=== PATIENT | male | born 1995 | race Caucasian/White ===

== ENCOUNTER 2016-12-29 21:02 | Inpatient (IN) ==
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
[2016-12-29 21:33] LABS: Hematocrit 48.8 % (37.5-50.1); Hemoglobin 16.5 g/dL (12.9-16.9); Immature Granulocytes % 0.3 % (0-4); Lymphocytes % 23.2 %; Mean Corpuscular HGB Conc 33.8 g/dL (31.6-35.5); Mean Corpuscular Hemoglobin 30.3 pg (28.0-33.3); Mean Corpuscular Volume 89.5 fL (83.0-100.0); Mean Platelet Volume 10.4 fL (9.4-12.4); Monocytes % 7.1 %; Platelet Count 312 K/mcL (140-400); Red Blood Count 5.45 M/mcL (4.19-5.50); Red Cell Distribution Width 12.6 % (11.5-14.5)
[2016-12-29 21:34] LABS: Basophils # 0.1 K/mcL (0.0-0.2); Basophils % 0.4 %; Eosinophils # 0.1 K/mcL (0.0-0.6); Lymphocytes # 2.8 K/mcL (0.6-4.6); Monocytes # 0.8 K/mcL (0.0-1.3); Neutrophils # 8.1 K/mcL (1.6-8.9)
[2016-12-29 21:35] LABS: Bilirubin,Urine Small (Negative); Blood,Urine Negative (Negative); Clarity,Urine Cloudy (Clear); Color,Urine Yellow (Yellow); Glucose,Urine (UA) Normal (Normal); Ketones,Urine Trace mg/dL (Negative); Leukocyte Esterase,Urine Negative (Negative); Nitrite,Urine Negative (Negative); Protein,Urine Trace mg/dL (Neg-Trace); Urobilinogen,Urine Normal (Normal)
[2016-12-29 21:37] LABS: Bacteria,Urine None Seen per hpf (None-Few); Hyaline Casts,Urine None Seen per lpf (None-Few); RBC,Urine 0-3 per hpf (0-3); Squamous Epithelial Cell,Urine Many per lpf (None-Few); WBC,Urine 0-3 per hpf (0-3)
[2016-12-29 21:41] LABS: Amphetamine Screen,Urine Negative ng/mL (Cutoff=1000); Barbiturate Screen,Urine Negative ng/mL (Cutoff=200); Benzodiazepines Screen,Urine Negative ng/mL (Cutoff=200); Cannabinoid Screen,Urine Positive ng/mL (Cutoff = 50); Cocaine Screen,Urine Negative ng/mL (Cutoff= 300); Opiate Screen,Urine Negative ng/mL (Cutoff=300); Phencyclidine Screen,Urine Negative ng/mL (Cutoff=25)
[2016-12-29 21:49] LABS: BUN/Creatinine Ratio 13 (6-26); Blood Urea Nitrogen 12 mg/dL (8-26); Calcium 10.1 mg/dL (8.6-10.8); Carbon Dioxide 24 mEq/L (19-29); Chloride 103 mEq/L (98-109); Glucose 96 mg/dL (70-99); Osmolality,Calculated 290 (280-300); Potassium 3.8 mEq/L (3.5-4.5); Sodium 140 mEq/L (136-145); eGFR For African Americans > 60 (> 60); eGFR For Non-African Americans > 60 (> 60)
[2016-12-29 21:50] LABS: Albumin 4.9 g/dL (3.5-5.0); Albumin/Globulin Ratio 1.5 (1.1-2.2); Bilirubin,Direct 0.3 mg/dL (0.0-0.5); Bilirubin,Indirect 0.4 mg/dL (0.0-1.2); Bilirubin,Total 0.7 mg/dL (0.2-1.2); Globulin 3.3 g/dL (2.4-3.5); Total Protein 8.2 g/dL (6.0-8.3)
[2016-12-29 21:54] LABS: Acetaminophen < 1.0 mcg/mL (10-30); Ethanol < 10 mg/dL (0-10); Salicylate < 5.0 mg/dL (15-30)
[2016-12-29 22:10] LABS: Thyroid Stimulating Hormone 1.016 mcIU/mL (0.350-4.840)
--- NOTE | 2016-12-29 23:05 | Emergency Department Note ---
START Narrative - START START: This patient was pending admission at the time of shift change. My only involvement in this case was to order the "decision to place" and to place a bed request. I did not see this patient. I was asked to place the bed request by the admitting 1A nurse.
[2016-12-29] MEDS ORDERED: Mag Hydrox/Al Hydrox/Simeth 30 ML UDC PO PRN (23:24)
[2016-12-29] MEDS ORDERED: *HR* LORazepam 2 MG/ML VIAL IM PRN (23:24)
[2016-12-29] MEDS ORDERED: hydrOXYzine pamoate 25 MG CAPSULE PO PRN (23:24)
[2016-12-29] MEDS ORDERED: Acetaminophen 325 MG TABLET PO PRN (23:24)
[2016-12-29] MEDS ORDERED: *HR* LORazepam 1 MG TABLET PO PRN (23:24)
[2016-12-29] MEDS ORDERED: MOM Conc 10 ML UD.LIQ PO PRN (23:24)
[2016-12-29] MEDS ORDERED: Haloperidol Lactate 5 MG/ML VIAL IM PRN (23:24)
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
[2016-12-30] MEDS: OLANZapine 10 MG TAB.RAPDIS PO SCH (20:55)
--- NOTE | 2016-12-31 10:41 | Psychiatry Progress Note ---
Date of Encounter: 12/31/16 Time of Encounter: 10:10 Subjective Interval history: Patient seen and interviewed. Reporting of doing a lot better. Behavior is more controlled and compliant. Slept fairly well after taking Zyprexa. Able to hold a linear and logical conversation without getting distracted easily. Still pressured and slightly intrusive. She still religiously preoccupied and quoting Bible and has been reading it on the unit. Able to see the irrational thought process that he was demonstrating prior to admission and gaining some insight into his bizarre and hyperreligious thought process. He is easily redirectable. Attending groups and interacting with peers appropriately. Overall patient is improving. Review of Systems Psychiatric: Reports: anxiety, mood swings Objective: Exam Patient orientation: Yes Person, Yes Time, Yes Place Level of alertness: Alert Patient appearance: Appropriate Behavior: anxious, talkative Psychomotor activity: Increased Eye contact: Maintains Eye Contact Mood description: Elevated Affect description: labile Speech pattern: Pressured Speech volume: Normal Thought process: Flight of Ideas Thought content: Yes Spiritism delusion Perceptual disturbances: No Auditory hallucinations, No Visual hallucinations Judgment: Fair Insight: Partial Results - Vital Signs Vital Signs: Temp Pulse Resp BP Pulse Ox 98.2 F 114 16 134/98 99 12/31/16 09:00 12/31/16 09:00 12/31/16 09:00 12/31/16 09:00 12/29/16 21:04 Assessment and Plan (1) Substance-induced psychotic disorder with delusions Current visit: Yes Status: Acute Plan: Continue hospitalization, Close observation, Suicide Precautions per unit protocol, Encourage participation in unit milieu, Group Therapy, Monitor sleep, Monitor appetite Additional Plan: Continue Zyprexa Risks, benefits, side effects, alternatives discussed w/pt: Yes Patient agreeable to treatment: Yes (2) Polysubstance abuse Current visit: Yes Status: Acute Plan: Continue hospitalization, Close observation, Suicide Precautions per unit protocol, Encourage participation in unit milieu, Group Therapy, Monitor sleep, Monitor appetite Additional Plan: Encouraged to work on a relapse prevention plan. Discussed different strategies to maintain sobriety. Risks, benefits, side effects, alternatives discussed w/pt: Yes Patient agreeable to treatment: Yes Consult Discharge Plan - Plan Referrals: NO,PCP [Primary Care Provider] -
--- NOTE | 2016-12-31 20:22 | Electrocardiograph Report ---
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
[2016-12-31] MEDS: OLANZapine 10 MG TAB.RAPDIS PO SCH (20:34)
--- NOTE | 2017-01-01 14:01 | Psychiatry Progress Note ---
Date of Encounter: 01/01/17 Time of Encounter: 13:55 Subjective Interval history: The H&P reviewed , patient seen for follow-up. Nursing staff report that patient is less manic, less delusional. He is compliant with his medication and was able to sleep. Patient presents as a pleasant young man, speech is pressured, some delusional content and preoccupation with drugs like marijuana, LSD, cocaine and others. Patient is gaining some insight. Denies any side effects from medication. Denies suicidal ideation. He displayed amish preoccupation. Review of Systems Psychiatric: Reports: anxiety, mood swings Objective: Exam Patient orientation: Yes Person, Yes Time, Yes Place Level of alertness: Alert Patient appearance: Appropriate, Well Groomed, Bizarre Behavior: anxious, talkative, dramatic Psychomotor activity: Increased Eye contact: Maintains Eye Contact Mood description: Elevated, Euphoric Affect description: labile Speech pattern: Pressured Speech volume: Normal Thought process: Flight of Ideas, Racing Thought content: Yes Buddhist delusion Perceptual disturbances: No Auditory hallucinations, No Visual hallucinations Judgment: Fair Insight: Partial Results - Vital Signs Vital Signs: Temp Pulse Resp BP Pulse Ox 98.1 F 91 16 136/95 99 01/01/17 08:47 01/01/17 08:47 01/01/17 08:47 01/01/17 08:47 12/29/16 21:04 Assessment and Plan (1) Substance-induced psychotic disorder with delusions Current visit: Yes Status: Acute Plan: Continue hospitalization, Close observation, Suicide Precautions per unit protocol, Encourage participation in unit milieu, Group Therapy, Monitor sleep, Monitor appetite Risks, benefits, side effects, alternatives discussed w/pt: Yes Patient agreeable to treatment: Yes Consult Discharge Plan - Plan Referrals: NO,PCP [Primary Care Provider] -
[2017-01-01] MEDS: OLANZapine 10 MG TAB.RAPDIS PO SCH (21:00)
--- NOTE | 2017-01-02 13:43 | Psychiatry Progress Note ---
Date of Encounter: 01/02/17 Time of Encounter: 13:39 Subjective Interval history: Patient is seen for follow-up. Nursing staff report he is no delusional or paranoid he is pleasant and appropriate in groups. He is compliant with his medication and showing improvement. Social work is in contact with his mother to work on discharge planning. Patient denies any suicidal ideation and an motivated to stay away from drugs. Review of Systems Psychiatric: Reports: anxiety, mood swings Objective: Exam Patient orientation: Yes Person, Yes Time, Yes Place Level of alertness: Alert Patient appearance: Appropriate, Well Groomed, Bizarre Behavior: cooperative, anxious, talkative, dramatic Psychomotor activity: Normal Eye contact: Maintains Eye Contact Mood description: Anxious, Elevated, Euphoric Affect description: congruent with mood, labile Speech pattern: Normal rate, Normal rhythm, Normal tone, Appropriate, Clear, Pressured Speech volume: Normal Thought process: Flight of Ideas, Racing Thought content: Yes Preoccupation, Yes Obsessive thoughts Perceptual disturbances: No Auditory hallucinations, No Visual hallucinations Judgment: Fair Insight: Partial Results - Vital Signs Vital Signs: Temp Pulse Resp BP Pulse Ox 98 F 98 16 139/90 99 01/02/17 08:49 01/02/17 08:49 01/02/17 08:49 01/02/17 08:49 12/29/16 21:04 Assessment and Plan (1) Substance-induced psychotic disorder with delusions Current visit: Yes Status: Acute Plan: Continue hospitalization, Close observation, Suicide Precautions per unit protocol, Encourage participation in unit milieu, Group Therapy, Monitor sleep, Monitor appetite Risks, benefits, side effects, alternatives discussed w/pt: Yes Patient agreeable to treatment: Yes (2) Depression Current visit: Yes Status: Acute Plan: Continue hospitalization, Close observation, Suicide Precautions per unit protocol, Encourage participation in unit milieu, Group Therapy, Monitor sleep, Monitor appetite Risks, benefits, side effects, alternatives discussed w/pt: Yes Patient agreeable to treatment: Yes Qualifiers: Depression Type: unspecified Qualified Code(s): F32.9 - Major depressive disorder, single episode, unspecified Consult Discharge Plan - Plan Referrals: NO,PCP [Primary Care Provider] -
[2017-01-02] MEDS: OLANZapine 10 MG TAB.RAPDIS PO SCH (20:40)
[2017-01-03 08:57] VITALS: BP 142/96
--- NOTE | 2017-01-03 12:52 | Discharge Summary ---
Date of Encounter: 01/03/17 Time of Encounter: 12:46 Diagnosis - Discharge Diagnosis (1) Substance-induced psychotic disorder with delusions Priority: Primary Status: Acute (2) Depression Priority: Secondary Status: Chronic Qualifiers: Depression Type: unspecified Qualified Code(s): F32.9 - Major depressive disorder, single episode, unspecified (3) Polysubstance abuse Priority: Secondary Status: Acute Medications - Discharge Medications Prescriptions: HydrOXYzine Pamoate 25 mg PO BID PRN #30 capsule PRN Reason: Anxiety OLANZapine [Zyprexa Zydis] 10 mg PO HS #30 tab.rapdis HydrOXYzine Pamoate 25 mg PO BID PRN #30 capsule 01/03/17 [Rx] OLANZapine [Zyprexa Zydis] 10 mg PO HS #30 tab.rapdis 01/03/17 [Rx] Allergies No Known Allergies Allergy (Verified 12/29/16 21:08) Provider Date of admission: 12/29/16 23:04 Primary care physician: PCP NO Consults: 12/29/16 23:52 Consult to Pastoral Services [CONS] Routine Comment: Per patient request Discharging clinician: Jhoan Murphy Assessment and Plan - Patient/Caregiver Discharge Instructions Activity: resume usual activities as tolerated Diet: regular diet - Follow up Plan Follow up with: [facility] [Other] (You will see Simone Paredes, counselor, for an intake on January 19, 2017 at 9:30 AM. Please bring your insurance card. Please also bring a signed statement from your friends indicating you live at their address and they are providing room and board for you. This statement will allow the agency to provide assistance with any costs of treatment not covered by your insurance. You are also scheduled to see psychiatric prescriber , Henry Conteh, on February 11, 2017 at 11:00 AM. You must keep your intake appointment in order to be able to see Henry. ) Functional capacity at discharge: independent ambulation Overall status at discharge: Stable Disposition: Home, Self-Care Hospital Course Hospital course: Mr. Chaidez is a 21 year old male admitted for substance-induced psychosis and suicidal ideation and substance abuse. For details ADMISSION please see H&P On the units patient was treated with Zyprexa and when necessary medication. His sleep improved, he was less delusional and denied suicidal ideation. Prior to discharge he was medically stable, presents no delusions or paranoia, he was educated about his medication noncompliance and instructed not to use any drugs. He is looking forward to have a job in the summer and back to school. Discharge plans are completed. - Time Spent with Patient Total time spent providing and/or coordinating discharge services: Quality - Multiple Antipsychotics Patient discharged on 2 or more antipsychotic medications: No Mental Status Exam - Mental Status Exam Patient orientation: Yes Person, Yes Time, Yes Place Level of alertness: Alert Patient appearance: Appropriate, Well Groomed, Bizarre Behavior: cooperative, anxious, talkative, dramatic Psychomotor activity: Normal Eye contact: Maintains Eye Contact Mood description: Anxious, Elevated, Euphoric Affect description: congruent with mood, labile Speech pattern: Normal rate, Normal rhythm, Normal tone, Appropriate, Clear, Pressured Speech Volume: Normal Thought process: Flight of Ideas, Racing Thought Content: Yes Preoccupation, Yes Obsessive thoughts Perceptual Disturbances: No Auditory hallucinations, No Visual hallucinations Judgment: Fair Insight: Partial
== END 2017-01-03 16:10 | disposition home or self-care (01) | DRG 897 ==
LOC: EMEROO 21:02 → SUATTDRO 23:04 → 1ANU 23:04
PROVIDERS: ADMIT Psychiatry & Neurology Psychiatry; ATTEND Psychiatry & Neurology Psychiatry

== ENCOUNTER 2018-06-20 14:07 | Inpatient (IN) ==
[2018-06-20] MEDS ORDERED: Haloperidol Lactate 5 MG/ML VIAL ONE ×2 (14:44→15:21)
[2018-06-20] MEDS ORDERED: *HR* LORazepam 2 MG/ML VIAL ONE (14:45)
[2018-06-20 14:58] LABS: Bilirubin,Urine Small (Negative); Blood,Urine Negative (Negative); Clarity,Urine Clear (Clear); Color,Urine Yellow (Yellow); Glucose,Urine (UA) Normal (Normal); Ketones,Urine Trace mg/dL (Negative); Leukocyte Esterase,Urine Negative (Negative); Nitrite,Urine Negative (Negative); Protein,Urine 30 mg/dL (Neg-Trace); Specific Gravity,Urine 1.025 (1.010-1.025); Urobilinogen,Urine Normal (Normal)
[2018-06-20 15:09] LABS: Mucus,Urine Many (Few); Squamous Epithelial Cell,Urine Few per lpf (None-Few)
[2018-06-20 15:10] LABS: Amorphous Sediment,Urine Moderate (Few); RBC,Urine 0-3 per hpf (0-3)
[2018-06-20 15:11] LABS: Bacteria,Urine Few per hpf (None-Few); WBC,Urine 0-3 per hpf (0-3)
[2018-06-20 15:28] LABS: Basophils % 0.3 %; Eosinophils # 0.1 K/mcL (0.0-0.6); Hematocrit 52.3 % (37.5-50.1); Hemoglobin 17.7 g/dL (12.9-16.9); Immature Granulocytes % 0.3 % (0-4); Lymphocytes # 3.7 K/mcL (0.6-4.6); Lymphocytes % 36.7 %; Mean Corpuscular HGB Conc 33.8 g/dL (31.6-35.5); Mean Corpuscular Hemoglobin 31.6 pg (28.0-33.3); Mean Corpuscular Volume 93.4 fL (83.0-100.0); Mean Platelet Volume 10.3 fL (9.4-12.4); Monocytes # 0.7 K/mcL (0.0-1.3); Monocytes % 6.5 %; Neutrophils # 5.6 K/mcL (1.6-8.9); Platelet Count 284 K/mcL (140-400); Red Cell Distribution Width 12.6 % (11.5-14.5); Segmented Neutrophils % 55.2 %
[2018-06-20] MEDS ORDERED: *HR* LORazepam 2 MG/ML VIAL IM ONE (15:33)
[2018-06-20 15:34] LABS: Amphetamine Screen,Urine Negative ng/mL (Cutoff=1000); Barbiturate Screen,Urine Negative ng/mL (Cutoff=200); Benzodiazepines Screen,Urine Negative ng/mL (Cutoff=200); Cannabinoid Screen,Urine Positive ng/mL (Cutoff = 50); Cocaine Screen,Urine Negative ng/mL (Cutoff= 300); Opiate Screen,Urine Negative ng/mL (Cutoff=300); Phencyclidine Screen,Urine Negative ng/mL (Cutoff=25)
[2018-06-20 15:46] LABS: Acetaminophen < 10 mcg/mL (10-20); BUN/Creatinine Ratio 10 (6-26); Blood Urea Nitrogen 11 mg/dL (6-20); Calcium 10.3 mg/dL (8.6-10.3); Carbon Dioxide 21 mEq/L (23-29); Chloride 104 mEq/L (98-107); Ethanol < 10 mg/dL (Less than 10); Glucose 122 mg/dL (70-105); Osmolality,Calculated 289 (280-300); Potassium 3.8 mEq/L (3.5-5.1); Salicylate < 2.5 mg/dL (15.0-30.0); Sodium 139 mEq/L (136-145); eGFR For Non-African Americans > 60 (> 60)
[2018-06-20] MEDS: Haloperidol Lactate 5 MG/ML VIAL IM ONE ×2 (16:36→16:37)
--- NOTE | 2018-06-20 16:46 | Emergency Department Note ---
Disposition Clinical Impression: Auditory hallucinations, Suicidal ideation, Homicidal ideation, Marijuana abuse Disposition: Admitted As Inpatient Condition: Good Referrals: NONE,PCP [Primary Care Provider] - Psych HPI - General Chief Complaint: ED Psychiatric Symptoms Stated Complaint: SI Time Seen by Provider: 06/20/18 14:27 Source: patient, family Mode of arrival: ambulatory Limitations: no limitations Nursing Notes Reviewed: Yes Vital Signs Reviewed: Yes - History of Present Illness HPI Narrative: Patient presents today for evaluation of suicidal and homicidal ideation. He is brought in by father also the request of mother for worsening symptoms. He describes hearing voices that tell him bad things. He states that they make him want to kill voices that he hears. Sometimes they are voices that he knows and other times they are not. He also states that he wants to kill himself in order to help stop the voices. The father states that all this started approximately a year ago when he did an acid trip that went bad. Has suicidal attempts but was unsuccessful. The patient has since had issues with auditory hallucinations. Patient has not had fevers or chills or chest pain or shortness of breath. Patient has not had any recent weight loss or weight gain. Patient will undergo blood work as well as a CT scan of his head for further evaluation. - Related Data Previous Rx's Medication Instructions Recorded OLANZapine [Zyprexa Zydis] 10 mg PO HS #30 tab.rapdis 01/03/17 hydrOXYzine pamoate [HydrOXYzine 25 mg PO BID PRN #30 capsule 01/03/17 Pamoate] Allergies Allergy/AdvReac Type Severity Reaction Status Date / Time No Known Allergies Allergy Verified 12/29/16 21:08 Review of Systems: CONSTITUTIONAL: No weight loss, fever, chills, weakness or fatigue. HEENT: Eyes: No visual changes. Ears, Nose, Throat: No hearing loss, difficulty talking or unable to swallow. SKIN: No rash or itching. CARDIOVASCULAR: No chest pain, chest pressure or chest discomfort. No palpitations or edema. RESPIRATORY: No shortness of breath, cough or sputum. GASTROINTESTINAL: No anorexia, nausea, vomiting or diarrhea. No abdominal pain or blood. GENITOURINARY: No burning on urination or hematuria. NEUROLOGICAL: Auditory hallucinations No headache, dizziness, syncope, paralysis , ataxia, numbness or tingling in the extremities. No change in bowel or bladder control. MUSCULOSKELETAL: No muscle pain, back pain, joint pain or stiffness. Psych: Suicidal and homicidal ideations. Past Medical History - Past Medical History Medical history: Reports: no medical history Surgical history: Reports: no surgical history Psychiatric history: Reports: depression, prior suicide attempt, previous psychiatric hospitalization - Social History Smoking Status: Current every day smoker Smokeless Tobacco Status: No Alcohol use: Reports: occasionally Drug use: Reports: cocaine, marijuana, prescription drug abuse, other Physical Exam General: Well appearing, nontoxic, no acute distress Head: Normocephalic Atraumatic Eyes: PERRL, EOMI ENT: Airway patent, no stridor Neck: supple, no meningismus Chest: Lungs clear to auscultation bilateral Cardiac: Regular rate and rhythm, no murmurs, rubs or gallops Abdomen: soft, nontender, nondistended; no guarding, rebound, or tenderness to percussion Musculoskeletal: Calves symmetric, nontender, no palpable cord Skin: No rash, normal skin tone Neuro: Alert and Oriented to person, place, and time; No focal deficit, CN 2-12 symmetric and intact - General Limitations: no limitations General appearance: alert, in no apparent distress Course - Reevaluation(s) Reevaluation #1: When the patient was told about blood work he adamantly refused. States that he is not comfortable with it. Significant amount of time was spent explaining the need for this. Patient has expressed suicidal and homicidal ideation and thoughts. He poses a risk to himself as well as others. This was explained to the patient still was not able to understand that we did need to clear him medically in order to get psychiatric treatment that he needs. Crumpler slip was placed. Patient was given chemical sedation with Haldol as well as Ativan and Benadryl. Patient was placed in leather restraints. Reevaluation #2: Patient did require 2 doses of Haldol however at this time he is very cooperative. Blood has been obtained and does not show any significant abnormalities. Patient has been cleared for further evaluation by psychiatric team. Positive for marijuana - Consultations Consultation #1: Discussed with [facility]. They will come and evaluate the patient. Vital Signs Temperature 97.3 F L 06/20/18 14:09 Pulse Rate 64 06/20/18 14:09 Respiratory Rate 15 06/20/18 14:09 Blood Pressure 134/82 06/20/18 14:09 O2 Sat by Pulse Oximetry 97 06/20/18 14:09 Temperature 97.3 F L 06/20/18 14:09 Pulse Rate 64 06/20/18 14:09 Respiratory Rate 15 06/20/18 14:09 Blood Pressure 134/82 06/20/18 14:09 O2 Sat by Pulse Oximetry 97 06/20/18 14:09 Oxygen Delivery Oxygen Delivery Room Air Psych - Lab Data Result diagrams: 06/20/18 15:04 06/20/18 15:04 Lab Results 06/20/18 06/20/18 06/20/18 Range/Units 14:32 14:32 15:04 WBC 10.1 (4.3-11.1) K/mcL RBC 5.60 H (4.19-5.50) M/mcL Hgb 17.7 H (12.9-16.9) g/dL Hct 52.3 H (37.5-50.1) % MCV 93.4 (83.0-100.0) fL MCH 31.6 (28.0-33.3) pg MCHC 33.8 (31.6-35.5) g/dL RDW 12.6 (11.5-14.5) % Plt Count 284 (140-400) K/mcL MPV 10.3 (9.4-12.4) fL Immature Gran % 0.3 (0-4) % Seg Neutrophils % 55.2 % Lymphocytes % 36.7 % Monocytes % 6.5 % Eosinophils % 1.0 % Basophils % 0.3 % Neutrophils # 5.6 (1.6-8.9) K/mcL Lymphocytes # 3.7 (0.6-4.6) K/mcL Monocytes # 0.7 (0.0-1.3) K/mcL Eosinophils # 0.1 (0.0-0.6) K/mcL Basophils # 0.0 (0.0-0.2) K/mcL Sodium (136-145) mEq/L Potassium (3.5-5.1) mEq/L Chloride (98-107) mEq/L Carbon Dioxide (23-29) mEq/L BUN (6-20) mg/dL Creatinine (0.70-1.30) mg/dL Est GFR ( Amer) (> 60) Est GFR (Non-Af Amer) (> 60) BUN/Creatinine Ratio (6-26) Glucose (70-105) mg/dL Calculated Osmolality (280-300) Calcium (8.6-10.3) mg/dL Urine Color Yellow (Yellow) Urine Clarity Clear (Clear) Urine pH 7.0 (5.0-8.0) pH Units Ur Specific [place] 1.025 (1.010-1.025) Urine Protein 30 H (Neg-Trace) mg/dL Urine Glucose (UA) Normal (Normal) mg/dL Urine Ketones Trace H (Negative) mg/dL Urine Blood Negative (Negative) Urine Nitrite Negative (Negative) Urine Bilirubin Small H (Negative) Urine Urobilinogen Normal (Normal) mg/dL Ur Leukocyte Esterase Negative (Negative) Urine Microscopic RBC 0-3 (0-3) per hpf Urine Microscopic WBC 0-3 (0-3) per hpf Ur Squamous Epith Cells Few (None-Few) per lpf Amorphous Sediment Moderate H (Few) Urine Bacteria Few (None-Few) per hpf Urine Mucus Many H (Few) Salicylates (15.0-30.0) mg/dL Urine Opiates Screen Negative (Vdlmqk=371) ng/mL Acetaminophen (10-20) mcg/mL Ur Barbiturates Screen Negative (Ougili=356) ng/mL Ur Phencyclidine Scrn Negative (Cutoff=25) ng/mL Ur Amphetamines Screen Negative (Gwfbih=6531) ng/mL U Benzodiazepines Scrn Negative (Fprwuz=083) ng/mL Urine Cocaine Screen Negative (Cutoff= 300) ng/mL U Marijuana (THC) Screen Positive H (Cutoff = 50) ng/mL Ur Drug Screen Interp See Below Ethyl Alcohol (Less than 10) mg/dL 06/20/18 Range/Units 15:04 WBC (4.3-11.1) K/mcL RBC (4.19-5.50) M/mcL Hgb (12.9-16.9) g/dL Hct (37.5-50.1) % MCV (83.0-100.0) fL MCH (28.0-33.3) pg MCHC (31.6-35.5) g/dL RDW (11.5-14.5) % Plt Count (140-400) K/mcL MPV (9.4-12.4) fL Immature Gran % (0-4) % Seg Neutrophils % % Lymphocytes % % Monocytes % % Eosinophils % % Basophils % % Neutrophils # (1.6-8.9) K/mcL Lymphocytes # (0.6-4.6) K/mcL Monocytes # (0.0-1.3) K/mcL Eosinophils # (0.0-0.6) K/mcL Basophils # (0.0-0.2) K/mcL Sodium 139 (136-145) mEq/L Potassium 3.8 (3.5-5.1) mEq/L Chloride 104 (98-107) mEq/L Carbon Dioxide 21 L (23-29) mEq/L BUN 11 (6-20) mg/dL Creatinine 1.08 (0.70-1.30) mg/dL Est GFR ( Amer) > 60 (> 60) Est GFR (Non-Af Amer) > 60 (> 60) BUN/Creatinine Ratio 10 (6-26) Glucose 122 H (70-105) mg/dL Calculated Osmolality 289 (280-300) Calcium 10.3 (8.6-10.3) mg/dL Urine Color (Yellow) Urine Clarity (Clear) Urine pH (5.0-8.0) pH Units Ur Specific [place] (1.010-1.025) Urine Protein (Neg-Trace) mg/dL Urine Glucose (UA) (Normal) mg/dL Urine Ketones (Negative) mg/dL Urine Blood (Negative) Urine Nitrite (Negative) Urine Bilirubin (Negative) Urine Urobilinogen (Normal) mg/dL Ur Leukocyte Esterase (Negative) Urine Microscopic RBC (0-3) per hpf Urine Microscopic WBC (0-3) per hpf Ur Squamous Epith Cells (None-Few) per lpf Amorphous Sediment (Few) Urine Bacteria (None-Few) per hpf Urine Mucus (Few) Salicylates < 2.5 L (15.0-30.0) mg/dL Urine Opiates Screen (Wyvijw=084) ng/mL Acetaminophen < 10 L (10-20) mcg/mL Ur Barbiturates Screen (Xldrzi=167) ng/mL Ur Phencyclidine Scrn (Cutoff=25) ng/mL Ur Amphetamines Screen (Nqaedp=8819) ng/mL U Benzodiazepines Scrn (Gmtkvr=607) ng/mL Urine Cocaine Screen (Cutoff= 300) ng/mL U Marijuana (THC) Screen (Cutoff = 50) ng/mL Ur Drug Screen Interp Ethyl Alcohol < 10 (Less than 10) mg/dL Psychiatric Medical Clearance - Medical Clearance Checklist Medical History: No Social History Section defined Current Vitals: Last Vital Signs Temp 97.3 F L 06/20/18 14:09 Pulse 64 06/20/18 14:09 Resp 15 06/20/18 14:09 BP 134/82 06/20/18 14:09 Pulse Ox 97 06/20/18 14:09 Psychiatric Lab Panel: Drug Levels and Toxicity 06/20/18 06/20/18 14:32 15:04 Urine Opiates Screen Negative Acetaminophen < 10 L Ur Barbiturates Screen Negative Ur Phencyclidine Scrn Negative Ur Amphetamines Screen Negative U Benzodiazepines Scrn Negative Urine Cocaine Screen Negative U Marijuana (THC) Screen Positive H Ethyl Alcohol < 10 Abnormal Labs: Abnormal lab results RBC 5.60 M/mcL (4.19-5.50) H 06/20/18 15:04 Hgb 17.7 g/dL (12.9-16.9) H 06/20/18 15:04 Hct 52.3 % (37.5-50.1) H 06/20/18 15:04 Carbon Dioxide 21 mEq/L (23-29) L 06/20/18 15:04 Glucose 122 mg/dL (70-105) H 06/20/18 15:04 Urine Protein 30 mg/dL (Neg-Trace) H 06/20/18 14:32 Urine Ketones Trace mg/dL (Negative) H 06/20/18 14:32 Urine Bilirubin Small (Negative) H 06/20/18 14:32 Amorphous Sediment Moderate (Few) H 06/20/18 14:32 Urine Mucus Many (Few) H 06/20/18 14:32 Salicylates < 2.5 mg/dL (15.0-30.0) L 06/20/18 15:04 Acetaminophen < 10 mcg/mL (10-20) L 06/20/18 15:04 U Marijuana (THC) Screen Positive ng/mL (Cutoff = 50) H 06/20/18 14:32 Statement of Medical Clearance: I have evaluated the patient, reviewed diagnostic information, and certify that the patient's medical condition is sufficiently stable that transfer to the psychiatric unit does not pose a significant risk of deterioration.
[2018-06-20] MEDS ORDERED: hydrOXYzine pamoate 25 MG CAPSULE PO PRN (19:06)
[2018-06-20] MEDS ORDERED: Mag Hydrox/Al Hydrox/Simeth 30 ML UDC PO PRN (19:06)
[2018-06-20] MEDS ORDERED: MOM Conc 10 ML UD.LIQ PO PRN (19:06)
[2018-06-20] MEDS ORDERED: *HR* LORazepam 2 MG/ML VIAL IM PRN (19:06)
[2018-06-20] MEDS ORDERED: Haloperidol Lactate 5 MG/ML VIAL IM PRN (19:06)
[2018-06-20] MEDS ORDERED: *HR* LORazepam 1 MG TABLET PO PRN (19:06)
[2018-06-20] MEDS ORDERED: Ibuprofen 400 MG TABLET PO PRN (19:06)
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
[2018-06-22] MEDS ORDERED: ARIPiprazole 5 MG TABLET PO SCH (21:00)
[2018-06-22] MEDS: traZODone 50 MG TABLET PO PRN (21:21)
--- NOTE | 2018-06-23 11:11 | Psychiatry Progress Note ---
Date of Encounter: 06/23/18 Time of Encounter: 11:08 Subjective Interval history: Still psychotic with little to no insight. However, he looks better than yesterday. Less paranoid glancing around the room. Took Abilify last night and reports it helped. Will increase dose today. Unclear if presentation is strictly substance induced but suspect there is an underlying thought disorder. It is possible he will end up having a Schizophrenia diagnosis with time. Review of Systems Constitutional: Denies: fever, chills, weakness, weight change Eyes: Denies: eye pain, vision change Ears, Nose, Throat: Denies: ear pain, throat pain, dental pain, hearing loss, congestion Cardiovascular: Denies: chest pain, palpitations, dyspnea on exertion Respiratory: Denies: cough, dyspnea, wheezes Gastrointestinal: Denies: abdominal pain, nausea, vomiting, diarrhea, constipation Musculoskeletal: Denies: joint swelling, joint pain Neurological: Denies: headache, weakness, numbness, memory loss Psychiatric: Reports: depression, anxiety, abnormal sleep pattern, suicidal ideation, auditory hallucinations, anhedonia, difficulty concentrating, hopelessness, irritability, mood swings Results - Vital Signs Vital Signs: Temp Pulse Resp BP Pulse Ox 98.7 F 78 18 138/89 97 06/23/18 09:00 06/23/18 09:00 06/23/18 09:00 06/23/18 09:00 06/20/18 17:29 Assessment and Plan (1) Substance-induced psychotic disorder with delusions Current visit: No Status: Acute Plan: Continue hospitalization, Close observation, Suicide Precautions per unit protocol, Encourage participation in unit milieu, Group Therapy, Monitor sleep, Monitor appetite Risks, benefits, side effects, alternatives discussed w/pt: Yes Patient agreeable to treatment: Yes (2) Bipolar depression Current visit: Yes Status: Acute Plan: Continue hospitalization, Close observation, Suicide Precautions per unit protocol, Encourage participation in unit milieu, Group Therapy, Monitor sleep, Monitor appetite Risks, benefits, side effects, alternatives discussed w/pt: Yes Patient agreeable to treatment: Yes Consult Discharge Plan - Plan Referrals: NONE,PCP [Primary Care Provider] - Psychiatry Exam - Constitutional Vitals: Temp Pulse Resp BP Pulse Ox 98.7 F 78 18 138/89 97 06/23/18 09:00 06/23/18 09:00 06/23/18 09:00 06/23/18 09:00 06/20/18 17:29 General appearance: age & developmentally appropriate, well-groomed, well- nourished - Musculoskeletal Gait: normal Station: relaxed Strength & Tone: normal for patient - Psychiatric Patient Orientation: Yes Person, Yes Time, Yes Place Level of alertness: Alert Behavior: calm, cooperative Psychomotor activity: Normal Eye Contact: Maintains Eye Contact Mood Description: Anxious Affect description: blunted Speech Volume: Normal Speech pattern: normal rate, normal rhythm, normal tone, fluent, spontaneous Language & Vocabulary: consistent with education Thought Process: Linear Thought Content: No Suicidal ideation, No Homicidal ideation, Yes Overt delusions Perceptual Disturbances: Yes Reacting to internal stimuli Attention Span Ability: Capable of Focused Attention Memory Description: Grossly Intact Patient Reliability: Questionable Historian Fund of knowledge: Yes abstraction ability, Yes aware of current events Intelligence Estimate: Average Judgment: Limited Insight: Minimal
[2018-06-23] MEDS: traZODone 50 MG TABLET PO PRN (20:54)
[2018-06-23] MEDS: ARIPiprazole 10 MG TABLET PO SCH (20:54)
--- NOTE | 2018-06-24 15:29 | Psychiatry Progress Note ---
Date of Encounter: 06/24/18 Time of Encounter: 15:30 Subjective Interval history: ID the patient is a 22-year-old single white male. Chief complaint I have a follow-up in [place] near the [facility]. History of present illness the patient reports he is doing well on Abilify. He says that he cannot sleep so well at night and this has to do with a mattress. He no longer hears the voices by his report. The patient has been able to tolerate Abilify without significant side effects. He is still worried about long-term side effects. I discussed with him the possibility of a long-acting injectable form of the medicine Abilify. He declined saying that he was nervous about needles. He indicates that he would like to maintain to maintain a clean and sober lifestyle. He said that his mother is being evicted from her home. He says that he plans to use prayer his Shinto antoni and see a therapist in order to help with stress. The patient plans live with his father in [facility] he indicates that his mother has made an appointment at a local mental Health Center in [place] and one half weeks. He now says that he will be abstinent from drugs and alcohol but he asked for information about the permeability of alcohol if he were to have a drink and dinner. The patient reports that he has no guns in his home or his father's home has guns that are locked up he use primarily for hunting or self-defense. There are no other knives or incendiary devices his father keeps a clean home free of alcohol Review of Systems Psychiatric: Reports: depression, anxiety, abnormal sleep pattern, suicidal ideation, auditory hallucinations, anhedonia, difficulty concentrating, hopelessness, irritability, mood swings Results - Vital Signs Vital Signs: Temp Pulse Resp BP Pulse Ox 98.7 F 90 18 130/90 97 06/23/18 20:07 06/23/18 20:07 06/23/18 20:06/23/18 20:07 06/20/18 17:29 Assessment and Plan (1) Bipolar disorder, current episode depressed, severe, with psychotic features Current visit: Yes Status: Acute Plan: Continue hospitalization, Close observation, Suicide Precautions per unit protocol, Encourage participation in unit milieu, Group Therapy, Monitor sleep Risks, benefits, side effects, alternatives discussed w/pt: Yes Patient agreeable to treatment: Yes (2) Suicidal ideation Current visit: Yes Status: Acute Plan: Continue hospitalization, Close observation, Family/Supportive other meeting Risks, benefits, side effects, alternatives discussed w/pt: Yes Patient agreeable to treatment: Yes (3) Substance-induced psychotic disorder with delusions Current visit: No Status: Acute Plan: Continue hospitalization, Close observation, Suicide Precautions per unit protocol, Family/Supportive other meeting Risks, benefits, side effects, alternatives discussed w/pt: Yes Patient agreeable to treatment: Yes (4) Homicidal ideation Current visit: Yes Status: Acute (5) Marijuana abuse Current visit: Yes Status: Acute Plan: Continue hospitalization, Close observation, Suicide Precautions per unit protocol, Encourage participation in unit milieu Risks, benefits, side effects , alternatives discussed w/pt: Yes Patient agreeable to treatment: Yes Consult Discharge Plan - Plan Referrals: NONE,PCP [Primary Care Provider] - Psychiatry Exam - Constitutional Vitals: Temp Pulse Resp BP Pulse Ox 98.7 F 90 18 130/90 97 06/23/18 20:07 06/23/18 20:07 06/23/18 20:07 06/23/18 20:07 06/20/18 17:29 General appearance: age & developmentally appropriate, well-groomed, well- nourished - Musculoskeletal Gait: normal Station: relaxed Strength & Tone: normal for patient - Psychiatric Patient Orientation: Yes Person, Yes Time, Yes Place Level of alertness: Alert Behavior: calm, cooperative Psychomotor activity: Normal Eye Contact: Maintains Eye Contact Mood Description: Anxious Affect description: congruent with mood, full range Speech Volume: Normal Speech pattern: normal rate, normal rhythm, normal tone, fluent, spontaneous Language & Vocabulary: consistent with education Thought Process: Linear, Goal Oriented, Evasive Thought Content: No Suicidal ideation, No Homicidal ideation, No Overt delusions , Yes Paranoid delusion Perceptual Disturbances: Yes Auditory hallucinations, No Visual hallucinations Attention Span Ability: Capable of Focused Attention Memory Description: Grossly Intact Patient Reliability: Questionable Historian Fund of knowledge: Yes abstraction ability, Yes aware of current events Intelligence Estimate: Below Average Judgment: Limited Insight: Minimal
[2018-06-24] MEDS: ARIPiprazole 10 MG TABLET PO SCH (20:15)
[2018-06-24] MEDS: traZODone 50 MG TABLET PO PRN (20:15)
[2018-06-25 09:33] VITALS: BP 122/77
--- NOTE | 2018-06-25 10:42 | Discharge Summary ---
Date of Encounter: 06/25/18 Time of Encounter: 10:30 Diagnosis - Discharge Diagnosis (1) Bipolar disorder, current episode depressed, severe, with psychotic features Priority: Primary Status: Acute (2) Suicidal ideation Priority: Secondary Status: Resolved (3) Substance-induced psychotic disorder with delusions Priority: Secondary Status: Resolved (4) Homicidal ideation Priority: Secondary Status: Resolved (5) Marijuana abuse Priority: Secondary Status: Chronic Medications - Discharge Medications Prescriptions: ARIPiprazole [Abilify] 10 mg PO HS 30 Days #30 tablet ARIPiprazole [Abilify] 10 mg PO HS 30 Days #30 tablet 06/25/18 [Rx] 3 Allergy/AdvReac Type Severity Reaction Status Date / Time No Known Allergies Allergy Verified 06/20/18 18:36 Provider Date of admission: 06/20/18 18:58 Primary care physician: PCP NONE Discharging clinician: Frank Chavez Psychiatry Exam - Constitutional Vitals: Temp Pulse Resp BP Pulse Ox 97.6 F 103 18 122/77 97 06/25/18 09:00 06/25/18 09:00 06/25/18 09:00 06/25/18 09:00 06/20/18 17:29 General appearance: age & developmentally appropriate, well-groomed, well- nourished - Musculoskeletal Gait: normal Station: relaxed Strength & Tone: normal for patient - Psychiatric Patient Orientation: Yes Person, Yes Time, Yes Place Level of alertness: Alert Behavior: calm, cooperative Psychomotor activity: Normal Eye Contact: Maintains Eye Contact Mood Description: Euthymic/stable Affect description: congruent with mood, full range Speech Volume: Normal Speech pattern: normal rate, normal rhythm, normal tone, fluent, spontaneous Language & Vocabulary: consistent with education Thought Process: Linear, Goal Oriented, [place] Thought Content: No Suicidal ideation, No Homicidal ideation, No Overt delusions Perceptual Disturbances: No Auditory hallucinations, No Visual hallucinations Attention Span Ability: Capable of Focused Attention Memory Description: Grossly Intact Patient Reliability: Questionable Historian Fund of knowledge: Yes abstraction ability, Yes aware of current events Intelligence Estimate: Average Judgment: Fair Insight: Partial Hospital Course Hospital course: Mr. Chaidez is a 22 year old male The patient is a 22-year-old single white male. Problem #1 the patient was admitted and initially the presence of psychosis was of major concern. The patient heard voices and had paranoid ideation. This gradually reduced and the patient reported some depression. Therefore a diagnosis of bipolar disorder depressed phase with psychosis was given. This is a more favorable diagnosis as compared to schizoaffective disorder schizophrenia. The patient did not exhibit significant manic symptoms on admission but did show some disorganization and distractibility and decreased need for sleep. Suicidal ideation the patient presented with suicidal ideation initially and this led to hospitalization. This resolved by the time discharge. Homicidal ideation the patient expressed homicidal ideation towards an immediate family member associated with his use of hallucinogens. The patient did not evidence homicidal ideation at the time of discharge. The patient was given a diagnosis of substance-induced psychotic disorder. This is based on the use of hallucinogens and perhaps other rugs abuse. The patient reported to them staff that he no longer planning to use LSD and felt that this was the primary cause of his problems. Nonetheless the patient had marijuana in his urine at the time of admission. He was advised to avoid marijuana cannabis and other drugs of abuse as they may exacerbate a primary psychiatric illness. The patient stabilized with Abilify 10 mg. The dosing was 10 mg daily at bedtime and the patient said that his bed was uncomfortable and that is why he did not sleep as well. The patient was somewhat impulsive and insistent on discharge and did help in making his own discharge arrangements. Family members were contacted. Patient plans to reside with his father which is a clean home without access to drugs or alcohol. There are guns in the home but the patient reports that he does not have access to the ends which are kept under lock and keller. The patient did not seem to show significant insight into the psychiatric disturbance. He was offered long-acting injectable forms of aripiprazole. He declined saying that he was nervous about needles. The patient was advised to take oral aripiprazole for one year. He was told that if he did not comply with this or was rehospitalized that the medicine Abilify maintena 400 mg IM every 28 days will be listed as a discharge medicine. At the time of discharge. This can be easily called in to the [facility] in [place]. She tolerated the medicine aripiprazole without significant side effects he was worried about long-term side effects and I did discuss weight gain risk of diabetes increased cholesterol and tardive dyskinesia - Time Spent with Patient Total time spent providing and/or coordinating discharge services: Less than 30 minutes Assessment and Plan - Patient/Caregiver Discharge Instructions Activity: resume usual activities as tolerated Diet: regular diet Additional Instructions: Avoid alcohol and drugs of abuse avoid marijuana and take medicines as prescribed - Follow up Plan Follow up with: [facility] [Outside] - 06/28/18 9:00 am (The above appointment is with Mili Varela, for outpatient psychiatric assessment and medication managment services. You will also see Sandra for mental health counseling services on July 01, 2018 at 5:00pm. Please bring photo ID and insurance card to all appointments.) Functional capacity at discharge: independent ambulation Overall status at discharge: Stable Disposition: Home, Self-Care Quality - Multiple Antipsychotics Patient discharged on 2 or more antipsychotic medications: No Procedures - Procedures Procedures: Medication Management, Crisis Stabilization, Supportive Therapy, Group Therapy, Psychoeducational Therapy
== END 2018-06-25 11:20 | disposition home or self-care (01) | DRG 885 ==
LOC: EMEROO 14:07 → 1ANU 18:58 → SUATTDRO 18:58 → 1ANU 20:03
PROVIDERS: ADMIT Psychiatry & Neurology Psychiatry; ATTEND Psychiatry & Neurology Forensic Psychiatry